=== PATIENT | female | born 1960 | race Caucasian/White ===

== ENCOUNTER 2021-12-23 11:01 | Emergency (ER) | payer MEDICAID ==
[~2021-12-23] VITALS: Ht 152.4 cm; Wt 53.1 kg
[2021-12-23 11:05] VITALS: BP 163/80
--- NOTE | 2021-12-23 11:13 | NUR ---
Patient ambulated well to bed 10.
--- NOTE | 2021-12-23 11:16 | NUR ---
61 y/o female BIB grandson for cough, sore throat, runny nose and headache x 2 days. Patient states she has the chills and has not been around anyone who is sick recently. Medical History: CARLA MARTINEZDA
--- NOTE | 2021-12-23 11:40 | NUR ---
DR LUCIA AT BEDSIDE EXAMINING PT
[2021-12-23] MEDS ORDERED: BENZ100C6 PO (11:44)
[2021-12-23] MEDS ORDERED: ACET-10509 PO (11:44)
--- NOTE | 2021-12-23 11:55 | NUR ---
Obtained specimen and walked to lab.
--- NOTE | 2021-12-23 11:59 | NUR ---
Patient discharged with v/s stable. Written and verbal after care instructions given. Patient alert, oriented and verbalized understanding of instructions. Ambulatory with steady gait. All questions addressed prior to discharge. ID band removed. Patient advised to follow up with PMD. Rx of acetaminophen and benzonatate given. Opportunity to ask questions provided and answered.
[2021-12-23 12:00] VITALS: BP 163/80
== END 2021-12-23 12:00 | disposition home or self-care (01) ==
LOC: MED 11:01
DX: J06.9 Acute upper respiratory infection, unspecified (principal); Z20.822 Contact with and (suspected) exposure to COVID-19; Z79.899 Other long term (current) drug therapy
CPT/HCPCS: 36415; 99283; U0003

== ENCOUNTER 2022-04-05 10:28 | Emergency (ER) | payer MEDICAID ==
[~2022-04-05] VITALS: Ht 147.3 cm; Wt 52.2 kg
[~2022-04-05 10:28] MED LIST: ACET-10509 PO; BENZ100C6 PO
[2022-04-05 10:35] VITALS: BP 183/83
--- NOTE | 2022-04-05 10:45 | NUR ---
PT AMBULATED TO ER BED 9
--- NOTE | 2022-04-05 11:01 | NUR ---
DR LINO AT BEDSIDE EVALUATING PT
--- NOTE | 2022-04-05 11:09 | NUR ---
LAB AT BEDSIDE
--- NOTE | 2022-04-05 11:09 | NUR ---
RAD AT BEDSIDE
--- NOTE | 2022-04-05 11:17 | NUR ---
US AT BEDSIDE. PT IN GOWN.
[2022-04-05 11:57] LABS: BASOPHILS % (AUTO) 0.5 % (0.0-2.0); EOSINOPHILS # (AUTO) 0.1 K/uL (0-0.4); EOSINOPHILS % (AUTO) 2.1 % (0.0-4.0); HEMATOCRIT 30.9 % (36-48); HEMOGLOBIN 10.4 g/dL (12.0-16.0); LYMPHOCYTES # (AUTO) 1.7 K/uL (2.5-16.5); LYMPHOCYTES % (AUTO) 32.2 % (20.5-51.1); MEAN CORPUSCULAR HEMOGLOBIN 30 pg (27-31); MEAN CORPUSCULAR HGB CONC 34 g/dL (33-37); MEAN CORPUSCULAR VOLUME 90.9 fL (80-94); MONOCYTES # (AUTO) 0.4 K/uL (0.8-1.0); MONOCYTES % (AUTO) 7.6 % (1.7-9.3); NEUTROPHILS % (AUTO) 57.6 % (42.2-75.2); PLATELET COUNT (AUTO) 282 K/uL (140-450); RED CELL DISTRIBUTION WIDTH 14.2 % (11.6-13.7); WHITE BLOOD COUNT (AUTO) 5.2 K/uL (4.8-10.8)
[2022-04-05 12:11] LABS: ALBUMIN 2.8 g/dL (3.4-5.0); ANION GAP 9.3 (8-16); CARBON DIOXIDE 28.7 mmol/L (21-32); CREATININE 0.5 mg/dL (0.6-1.3); TOTAL BILIRUBIN 0.3 mg/dL (0.0-1.0)
--- NOTE | 2022-04-05 12:34 | NUR ---
61 Y/O FEMALE C/O INCREASED SWELLING TO BLE X2 DAYS. DENIES CHEST PAIN/SOB. DENIES NUMBNESS/TINGLING. REPORTS PRESSURE TO LLE. ON ASSESSMENT +2 PITTING EDEMA TO BLE. CAP REFILL < 3 SECONDS. AMBULATORY WITH STEADY GAIT. DENIES FALLS OR INJURY. A/O X4. EVEN AND UNLABORED RESPIRATIONS. PMH:DM MEDS: UNAWARE
[2022-04-05] MEDS ORDERED: NAPR-1871 PO (13:32)
[2022-04-05 13:45] VITALS: BP 162/80
--- NOTE | 2022-04-05 13:45 | NUR ---
Patient discharged with v/s stable. Written and verbal after care instructions given and explained. Patient alert, oriented and verbalized understanding of instructions. Ambulatory with steady gait. All questions addressed prior to discharge. ID band removed. Patient advised to follow up with PMD. Rx of NAPROXEN SODIUM given. Patient educated on indication of medication including possible reaction and side effects. Opportunity to ask questions provided and answered.
== END 2022-04-05 13:45 | disposition home or self-care (01) ==
LOC: MED 10:28
DX: M79.672 Pain in left foot (principal); R60.0 Localized edema; I10 Essential (primary) hypertension; R79.89 Other specified abnormal findings of blood chemistry; R20.0 Anesthesia of skin; E11.9 Type 2 diabetes mellitus without complications; Z98.890 Other specified postprocedural states; Z79.899 Other long term (current) drug therapy
CPT/HCPCS: 36415; 73630; 80053; 83880; 84484; 85025; 93970; 99285; Q0092

== ENCOUNTER 2022-07-25 10:05 | Emergency (ER) | payer MEDICAID ==
[~2022-07-25] VITALS: Ht 147.3 cm; Wt 51.5 kg
[~2022-07-25 10:05] MED LIST changes: +NAPR-1871 PO
[2022-07-25 10:33] VITALS: BP 152/82
--- NOTE | 2022-07-25 10:53 | NUR ---
PT AMB TO BED 4.
--- NOTE | 2022-07-25 10:59 | NUR ---
PATEINT PRESENTS TO ED FROM HOME. PATIENT STATES SHE HAS A HX OF DM AND WOULD RECEIVE MONDAY SHOTS IN THE EYE TO PREVENT COMPLICATIONS FROM DIABETES. PATIETN STATES SINCE LAST MONDAY'S SHOTS SHE HAS BEEN SEING FLOATES IN HER EYES AND DECREASED VISION. PATIENT REPORTS NO PAIN OTHERWISE.
[2022-07-25] MEDS ORDERED: TETRACAINE HCL/PF 0.5% OPTH 4 ML BTL OP ONE (11:35)
[2022-07-25 13:06] VITALS: BP 138/79
== END 2022-07-25 13:06 | disposition home or self-care (01) ==
LOC: MED 10:05
DX: H43.812 Vitreous degeneration, left eye (principal); H57.12 Ocular pain, left eye; E11.9 Type 2 diabetes mellitus without complications; I10 Essential (primary) hypertension; Z79.899 Other long term (current) drug therapy
CPT/HCPCS: 99283; 99284